=== PATIENT | female | born 1950 | race Caucasian/White ===

== ENCOUNTER → 2022-07-12 | Outpatient (CLI) | payer MEDICARE, OTHER ==
[~2022-07-12] MED LIST: COREG 12.5MG12.5 MG PO; ELAVIL 50 MG TA50 MG PO; FEOSOL325 MG PO; HYDRALAZINE HCL25 MG PO; HYDROCHLOROTHIA25 MG PO; IRON325 M1 PO; LISINOPRIL20 MG PO; LISINOPRIL5 MG PO; MELOXICAM7.5 MG PO; METOPROLOL TART50 MG PO; MOBIC7.5 MG PO; NORVASC5 MG PO; PROAIR HFA8.5 GM INH; PROTONIX40 MG PO; SINGULAIR10 MG PO; TYLENOL 8 HOUR650 MG PO; VITAMIN B12; VITAMIN C500 M4 PO; VITAMIN D21250 MCG PO; ZOCOR20 MG PO; ZYRTEC10 MG PO
[2022-07-12 13:30] LABS: HEMOGLOBIN 13.6 gm/dl (12.3-15.3); RED BLOOD COUNT 4.31 M/UL (4.00-5.10); WHITE BLOOD COUNT 8.5 K/UL (4.5-11.0)
== END ==
LOC: OPSV2 07-10 12:30 → EDSTATUS 12:30 → OPSV2 12:30
PROVIDERS: Orthopaedic Surgery
DX: Z01.818 Encounter for other preprocedural examination (principal); M17.12 Unilateral primary osteoarthritis, left knee; R94.31 Abnormal electrocardiogram [ECG] [EKG]; Z88.2 Allergy status to sulfonamides; J84.10 Pulmonary fibrosis, unspecified
CPT/HCPCS: 36415; 71046; 80048; 85025; 93005

== ENCOUNTER → 2022-07-23 | Outpatient (CLI) | payer MEDICARE, OTHER ==
[~2022-07-23] MED LIST changes: +CYCLOBENZAPRINE10 MG PO; +ELIQUIS2.5 MG PO; +OXYCODON-ACETA1 EAC1 PO; +VITAMIN B-121000 MCG PO; -VITAMIN B12; +ZOFRAN 4 MG TAB4 MG PO
== END ==
LOC: LAB 12:18
PROVIDERS: Orthopaedic Surgery
DX: Z01.812 Encounter for preprocedural laboratory examination (principal)
CPT/HCPCS: 36415; 80048; 86850; 86900; 86901

== ENCOUNTER 2022-07-24 05:53 | Day surgery (SDC) | payer MEDICARE, OTHER ==
[~2022-07-24] VITALS: Ht 165.1 cm; Wt 70.8 kg
[~2022-07-24 05:53] MED LIST changes: -CYCLOBENZAPRINE10 MG PO; -ELIQUIS2.5 MG PO; -OXYCODON-ACETA1 EAC1 PO; -ZOFRAN 4 MG TAB4 MG PO
[2022-07-24] MEDS ORDERED: ELIQUIS2.5 MG PO (06:29)
[2022-07-24] MEDS ORDERED: CYCLOBENZAPRINE10 MG PO (06:30)
[2022-07-24] MEDS ORDERED: OXYCODON-ACETA1 EAC1 PO (06:31)
[2022-07-24] MEDS ORDERED: ZOFRAN 4 MG TAB4 MG PO (06:31)
[2022-07-25 05:09] LABS: HEMOGLOBIN 12.3 gm/dl (12.3-15.3); RED BLOOD COUNT 3.89 M/UL (4.00-5.10); WHITE BLOOD COUNT 13.6 K/UL (4.5-11.0)
[2022-07-25 05:21] LABS: BUN/CREATININE RATIO 18 (0-10)
--- NOTE | 2022-07-25 17:25 | NUR ---
report called to [facility]
== END 2022-07-25 17:17 | disposition home or self-care (01) ==
LOC: OR 05:53 → CCU 05:53 → OR 07:30 → CCU 14:01 → OR 07-25 17:17
PROVIDERS: Orthopaedic Surgery
DX: M17.0 Bilateral primary osteoarthritis of knee (principal); M25.761 Osteophyte, right knee; I12.9 Hypertensive chronic kidney disease with stage 1 through stage 4 chronic kidney disease, or unspecified chronic kidney disease; N18.9 Chronic kidney disease, unspecified; E78.5 Hyperlipidemia, unspecified; D50.9 Iron deficiency anemia, unspecified; J44.9 Chronic obstructive pulmonary disease, unspecified; K21.9 Gastro-esophageal reflux disease without esophagitis; K44.9 Diaphragmatic hernia without obstruction or gangrene
CPT/HCPCS: 36415; 73560; 80048; 85027; 97116; 97116-GP-CQ; 97162; 97166; 97530-GP-CQ; 97535; C1713; C1776; J0690; J1100; J1170; J1644; J2001; J2250; J2274; J2370; J2405; J2704; J2710; J2795; J3010; J3370; J7030

== ENCOUNTER 2022-08-13 17:28 | Emergency (ER) | payer MEDICARE, OTHER ==
[~2022-08-13 17:28] MED LIST changes: +CYCLOBENZAPRINE10 MG PO; +ELIQUIS2.5 MG PO; +OXYCODON-ACETA1 EAC1 PO; +ZOFRAN 4 MG TAB4 MG PO
[2022-08-13] MEDS ORDERED: ZOFRAN ODT 4 MG4 MG SL (19:38)
== END 2022-08-13 19:46 | disposition home or self-care (01) ==
LOC: ER1 17:28
DX: K22.2 Esophageal obstruction (principal); R40.2410 Glasgow coma scale score 13-15, unspecified time; I10 Essential (primary) hypertension; Z88.2 Allergy status to sulfonamides
CPT/HCPCS: 71045; 81001; 99284